=== PATIENT | male | born 1945 | race African-American/Black ===

== ENCOUNTER 2021-02-09 00:37 | Emergency (ER) | payer MEDICARE, BC ==
[~2021-02-09] VITALS: Ht 182.9 cm; Wt 109.0 kg
[2021-02-09 01:40] VITALS: BP 166/77
[2021-02-09 01:59] LABS: CLARITY,URINE CLOUDY; COLOR,URINE RED
[2021-02-09 02:16] LABS: RBC,URINE TNTC /HPF (0-2)
[2021-02-09 02:17] LABS: BACTERIA,URINE 0 /HPF (0-FEW)
--- NOTE | 2021-02-09 03:00 | PHYS DOC ---
Past Medical History Past Medical History: Hypertension Past Surgical History: No Surgical History Smoking Status: Never Smoker Alcohol Use: Heavy General Adult EDM: Chief Complaint: BLOOD IN URINE HPI: HPI: Patient is a 75 year old male who present to ER for evaluation of blood in his urine for 3 days, denies any pain. Patient did complain of frequent urination. Patient denies any abdominal pain, no flank pain, no weight loss, no night sweats . patient said he is not on any blood thinner. Review of Systems: Review of Systems: Constitutional: Denies fever or chills. [] Eyes: Denies change in visual acuity. [] HENT: Denies nasal congestion or sore throat. [] Respiratory: Denies cough or shortness of breath. [] Cardiovascular: Denies chest pain or edema. [] GI: Denies abdominal pain, nausea, vomiting, bloody stools or diarrhea. [] : Denies dysuria, positive for hematuria, frequent urination Musculoskeletal: Denies back pain or joint pain. [] Integument: Denies rash. [] Neurologic: Denies headache, focal weakness or sensory changes. [] Endocrine: Denies polyuria or polydipsia. [] Lymphatic: Denies swollen glands. [] Psychiatric: Denies depression or anxiety. [] Heart Score: C/O Chest Pain: N/A Risk Factors: Risk Factors: DM, Current or recent (<one month) smoker, HTN, HLP, family history of CAD, obesity. Risk Scores: Score 0 - 3: 2.5% MACE over next 6 weeks - Discharge Home Score 4 - 6: 20.3% MACE over next 6 weeks - Admit for Clinical Observation Score 7 - 10: 72.7% MACE over next 6 weeks - Early Invasive Strategies Allergies: Allergies: Allergies Coded Allergies Type Severity Reaction Last Updated Verified No Known Drug Allergies 02/09/21 No Physical Exam: PE: Constitutional: Well developed, well nourished, no acute distress, non-toxic appearance. [] HENT: Normocephalic, atraumatic, bilateral external ears normal, oropharynx moist, no oral exudates, nose normal. [] Eyes: PERRLA, EOMI, conjunctiva normal, no discharge. [] Neck: Normal range of motion, no tenderness, supple, no stridor. [] Cardiovascular:Heart rate regular rhythm, no murmur [] Lungs & Thorax: Bilateral breath sounds clear to auscultation [] Abdomen: Bowel sounds normal, soft, no tenderness, no masses, no pulsatile masses. [] Skin: Warm, dry, no erythema, no rash. [] Back: No tenderness, no CVA tenderness. [] Extremities: No tenderness, no cyanosis, no clubbing, ROM intact, no edema. [] Neurologic: Alert and oriented X 3, normal motor function, normal sensory function, no focal deficits noted. [] Psychologic: Affect normal, judgement normal, mood normal. [] Current Patient Data: Labs: Laboratory Tests Test 02/09/21 01:50 Urine Collection Type Void Urine Color Red Urine Clarity Cloudy Urine pH (<5.0-8.0) Urine Specific [place] (1.000-1.030) Urine Protein mg/dL (NEG-TRACE) Urine Glucose (UA) mg/dL (NEG) Urine Ketones (Stick) mg/dL (NEG) Urine Blood (NEG) Urine Nitrite (NEG) Urine Bilirubin (NEG) Urine Urobilinogen Dipstick mg/dL (0.2 mg/dL) Urine Leukocyte Esterase (NEG) Urine RBC Tntc /HPF (0-2) Urine WBC 11-20 /HPF (0-4) Urine Squamous Epithelial Cells Occ /LPF Urine Bacteria 0 /HPF (0-FEW) Urine Mucus Mod /LPF Vital Signs: Vital Signs Date Time Temp Pulse Resp B/P (MAP) Pulse Ox O2 Delivery O2 Flow Rate FiO2 02/09/21 01:40 98.2 83 13 166/77 (106) 95 Room Air 98.2 EKG: EKG: [] Radiology/Procedures: Radiology/Procedures: [][facility] [address] [place] [address] IMAGING REPORT Signed PATIENT: CONSTANZA WORTHINGTON I ACCOUNT: [id number] : 1945 LOCATION: ER AGE: 75 SEX: M EXAM STATUS: REG ER ORD. PHYSICIAN: YASMINE JIMÉNEZ DO REASON: hematuria PROCEDURE: CT ABDOMEN PELVIS WO CONTRAST PQRS Compliance Statement: One or more of the following individualized dose reduction techniques were utilized for this examination: 1. Automated exposure control 2. Adjustment of the mA and/or kV according to patient size 3. Use of iterative reconstruction technique CT abdomen/pelvis without contrast 02/09/2021 2:52 AM INDICATION: Hematuria COMPARISON: None available TECHNIQUE: Multiple axial CT images of the abdomen and pelvis were obtained without intravenous contrast. Coronal and sagittal reformats are provided. FINDINGS: Visualized portions of the lung bases are clear. Heart size is within normal limits. Evaluation of the solid abdominal viscera is limited by lack of intravenous contrast. No suspicious hepatic masses are identified. Spleen, bilateral adrenal glands, and pancreas are normal in appearance. 1.8 cm calcified gallstone identified within gallbladder which is otherwise contracted. Small and large bowel are normal in caliber. There is no evidence for bowel obstruction. There are no pericolonic inflammatory changes. Appendix appears mcgee rgically absent. The kidneys are relatively symmetric in appearance. There is no suspicious renal mass within the limitations of a noncontrast examination. There is no hydronephrosis. There are no calculi within the kidneys, ureters or urinary bladder. Mild bladder wall thickening which may be secondary to underdistention versus chronic outlet obstruction. Prostate is borderline enlarged measuring 4.5 x 5.5 cm. Small fat-containing left inguinal hernia. The abdominal aorta is normal in course and caliber. There are no pathologically enlarged lymph nodes in the abdomen and pelvis. There is no abdominal free fluid. There is no free intraperitoneal air. Dense calcified atheromatous plaque is identified involving the abdominal aorta and mesenteric vasculature. Minimal retrolisthesis of L2 on L3 and L3 on L4. No suspicious osseous abnormality. IMPRESSION: 1. Bladder wall thickening may be secondary to underdistention versus chronic obstruction. No findings to suggest obstructive uropathy. 2.Prostatomegaly. 3. Dense calcified atheromatous plaque. 4. Cholelithiasis. Electronically signed by: Jenn Wang MD (02/09/2021 3:07 AM) [facility] DICTATED and SIGNED BY: JENN WANG MD DATE: 02/09/21 [id number] 0 Course & Med Decision Making: Course & Med Decision Making Pertinent Labs and Imaging studies reviewed. (See chart for details) Patient is a 75-year-old male who present to ER due to hematuria and frequent urination, CT scan abdomen pelvis show thickening wall of the bladder, suspicious for cystitis. Patient will be prescribed antibiotic, he will need to follow-up with urologist for outpatient evaluation and treatment. Pippa Disclaimer: Pippa Disclaimer: This electronic medical record was generated, in whole or in part, using a voice recognition dictation system. Departure Departure Impression: Primary Impression: Cystitis Disposition: HOME / SELF CARE / HOMELESS Condition: STABLE Referrals: SOURAV IBRAHIM (PCP) Patient Instructions: Interstitial Cystitis Additional Instructions: Please call UROLOGY FOR FOLLOW UP IN 2 DAYS. Former[facility] / [place], [place] [address] [place] [address] [place], [place] [id number] [place] [address] [place] [address] [facility], [address] [place] [address] Scripts Sulfamethoxazole/Trimethoprim (BACTRIM DS TABLET) 1 Each Tablet 1 TAB PO BID for 10 Days, #20 TAB 0 Refills Prov: YASMINE JIMÉNEZ DO 02/09/21 YASMINE JIMÉNEZ DO Feb 09, 2021 03:00
--- NOTE | 2021-02-09 03:09 | RAD ---
PQRS Compliance Statement: One or more of the following individualized dose reduction techniques were utilized for this examinat ion: 1. Automated exposure control 2. Adjustment of the mA and/or kV according to patient size 3. Use of iterative reconstruction technique CT abdomen/pelvis without contrast 02/09/2021 2:52 AM INDICATION: Hematuria COMPARISON: None available TECHNIQUE: Multiple axial CT images of the abdomen and pelvis were obtained without intravenous contr ast. Coronal and sagittal reformats are provided. FINDINGS: Visualized portions of the lung bases are clear. Heart size is within normal limits. Evaluation of the solid abdominal viscera is limited by lack of intravenous contrast. No suspicious hepatic masses are identified. Spleen, bilateral adrenal glands, and pancreas are emery l in appearance. 1.8 cm calcified gallstone identified within gallbladder which is otherwise contract ed. Small and large bowel are normal in caliber. There is no evidence for bowel obstruction. There are no pericolonic inflammatory changes. Appendix appears surgically absent. The kidneys are relatively symmetric in appearance. There is no suspicious renal mass within the limi tations of a noncontrast examination. There is no hydronephrosis. There are no calculi within the kid neys, ureters or urinary bladder. Mild bladder wall thickening which may be secondary to underdistent ion versus chronic outlet obstruction. Prostate is borderline enlarged measuring 4.5 x 5.5 cm. Small fat-containing left inguinal hernia. The abdominal aorta is normal in course and caliber. There are no pathologically enlarged lymph nodes in the abdomen and pelvis. There is no abdominal free fluid. There is no free intraperitoneal air. D ense calcified atheromatous plaque is identified involving the abdominal aorta and mesenteric vascula ture. Minimal retrolisthesis of L2 on L3 and L3 on L4. No suspicious osseous abnormality. IMPRESSION: 1. Bladder wall thickening may be secondary to underdistention versus chronic obstruction. No finding s to suggest obstructive uropathy. 2.Prostatomegaly. 3. Dense calcified atheromatous plaque. 4. Cholelithiasis. Electronically signed by: Corinna Candelaria MD (02/09/2021 3:07 AM) [facility]
[2021-02-09] MEDS ORDERED: SULF1TAB24 PO (03:36)
== END 2021-02-09 03:48 | disposition home or self-care (01) ==
LOC: ER 00:37
DX: N30.91 Cystitis, unspecified with hematuria (principal); I10 Essential (primary) hypertension; F10.20 Alcohol dependence, uncomplicated; Y90.9 Presence of alcohol in blood, level not specified
CPT/HCPCS: 74176; 81001; 87086; 99284-25